=== PATIENT | male | born 1945 | race Caucasian/White ===

== ENCOUNTER 2017-02-02 18:57 | Emergency (ER) | payer OTHER, MEDICAID ==
[2017-02-02] MEDS ORDERED: SULFAMETHOX/TMP 800/160 MG 1 TAB PO ONE (19:26)
--- NOTE | 2017-02-02 19:29 | EDPHY ---
H & P Stated Complaint: L hand possible infection Time Seen by Provider: 02/02/17 19:17 HPI/ROS: CHIEF COMPLAINT: Hand infection HISTORY OF PRESENT ILLNESS: The patient is a 72-year-old man with a history of Alzheimer's disease who is sent here from Dr. Todd is office with concern for hand infection. The patient was been by a cat about a week ago but he is not sure. He developed some erythema and pain to the web space of his left thumb. There is a small pustular lesion the. No fever. No body aches. REVIEW OF SYSTEMS: Constitutional: denies: chills, fever, recent illness, recent injury EENTM: denies: blurred vision, double vision, nose congestion Respiratory: denies: cough, shortness of breath Cardiac: denies: chest pain, irregular heart rate, lightheadedness, palpitations Gastrointestinal/Abdominal: denies: abdominal pain, diarrhea, nausea, vomiting, blood streaked stools Genitourinary: denies: dysuria, frequency, hematuria, pain Musculoskeletal: denies: joint pain, muscle pain Skin: See HPI Neurological: denies: headache, numbness, paresthesia, tingling, dizziness, weakness Hematologic/Lymphatic: denies: blood clots, easy bleeding, easy bruising Immunologic/allergic: denies: HIV/AIDS, transplant EXAM: GENERAL: Well-appearing, well-nourished and in no acute distress. HEAD: Atraumatic, normocephalic. EYES: Pupils equal round and reactive to light, extraocular movements intact, sclera anicteric, conjunctiva are normal. ENT: TMs normal, nares patent, oropharynx clear without exudates. Moist mucous membranes. NECK: Normal range of motion, supple without lymphadenopathy or JVD. LUNGS: Breath sounds clear to auscultation bilaterally and equal. No wheezes rales or rhonchi. HEART: Regular rate and rhythm without murmurs, rubs or gallops. ABDOMEN: Soft, nontender, normoactive bowel sounds. No guarding, no rebound. No masses appreciated. BACK: No CVA tenderness, no spinal tenderness, step-offs or deformities EXTREMITIES: Normal range of motion, no pitting or edema. No clubbing or cyanosis. NEUROLOGICAL: Cranial nerves II through XII grossly intact. Normal speech, normal gait. 5/5 strength, normal movement in all extremities, normal sensation PSYCH: Normal mood, normal affect. SKIN: Small abscess easily drained between the patient's web space of his left thumb. Source: Patient Exam Limitations: No limitations - Personal History Current Tetanus/Diphtheria Vaccine: Unsure Tetanus Vaccine Date: Unsure - Medical/Surgical History Hx Asthma: No Hx Chronic Respiratory Disease: No Hx Diabetes: No Hx Cardiac Disease: No Hx Renal Disease: No Hx Cirrhosis: No Hx Alcoholism: No Hx HIV/AIDS: No Hx Splenectomy or Spleen Trauma: No Other PMH: PMHx: Alzheimers, BPH. PSHx: Hernia Repair 2013, colon surgery - Social History Smoking Status: Former smoker Alcohol Use: Sober Drug Use: None Constitutional: Initial Vital Signs Temperature (C) 36.8 C 02/02/17 19:05 Heart Rate 86 02/02/17 19:05 Respiratory Rate 16 02/02/17 19:05 Blood Pressure 125/81 H 02/02/17 19:05 O2 Sat (%) 95 02/02/17 19:05 O2 Delivery Mode Room Air Allergies/Adverse Reactions: No Known Allergies Allergy (Unverified 06/30/10 13:25) Home Medications: Medication Instructions Recorded Ascorbic Acid [Vitamin C 500 mg 1,000 mg PO DAILY06 12/22/14 (*)] Calcium Carbonate [Oyster Shell 500 mg PO DAILY06 12/22/14 Calcium 500 mg (*)] Cholecalciferol Vit D3 [Vitamin D3 1,000 units PO DAILY06 12/22/14 (*)] Donepezil HCl [Aricept] 10 mg PO DAILY18 12/22/14 Glucosamine/Chondroitin 1 each PO DAILY06 12/22/14 [Glucosamine/Chondroitin (*)] Herbals/Supplements -Info Only 1 ea PO DAILY 12/22/14 Multivitamins [Multivitamin (*)] 1 each PO DAILY 12/22/14 Union-3 Fatty Acids [Fish Oil 1000 1,000 mg PO DAILY06 12/22/14 mg (*)] Namenda 10 mg 10 mg PO DAILY 12/11/15 traMADol [Ultram 50 mg (*)] 50 mg PO Q4 PRN 12/31/15 Cephalexin [Keflex] 500 mg PO TID #21 cap 02/02/17 Sulfamethox/Tmp 800/160 mg 1 tab PO BID #14 tab 02/02/17 [Bactrim Ds] Medical Decision Making - Diagnostics Imaging: I viewed and interpreted images myself Procedures: Procedure: Abscess drainage. The patient's abscess was located on the left hand. I obtained verbal consent from the patient to drain the abscess who was informed about the possibility of bleeding and pain. Squeeze with pressure and 1 cc of purulent drainage was expressed. The procedure was performed by myself. ED Course/Re-evaluation: Patient has a small abscess that was easily drained. Culture sent to the lab. I will obtain lab work and start him on an IV dose of antibiotics. He looks well and I suspect he will succeeded home on oral antibiotics. I will also perform x-rays to rule out foreign body. 8:30 p.m. the patient is feeling well. His lab work is reassuring. He wishes to go home. I feel that he will probably succeeded as an outpatient. I will start him on Keflex and Bactrim. He has received Rocephin here in the emergency department. His mom is here and agrees with this plan. I told him to return in 24 hours for recheck. Differential Diagnosis: Partial list of the Differential diagnosis considered include but were not limited to; cellulitis, abscess, foreign body and although unlikely based on the history and physical exam, I also considered osteomyelitis, sepsis. I discussed these differential diagnoses and the plan with the patient as well as the usual and expected course. The patient understands that the diagnosis is provisional and that in medicine we are not always correct and that further workup is often warranted. Usual and customary warnings were given. All of the patient's questions were answered. The patient was instructed to return to the emergency department should the symptoms at all worsen or return, otherwise to followup with the physician as we discussed. - Data Points Laboratory Results: Laboratory Results 02/02/17 19:40 02/02/17 19:40 Microbiology Results: MICROBIOLOGY 02/02/17 19:40 Hand - Swab Gram Stain - Final 02/02/17 19:40 Hand - Swab Wound Culture - Preliminary Staphylococcus Aureus Pasteurella Multocida 02/02/17 20:15 Blood Blood Culture - Preliminary 02/02/17 19:40 Blood Blood Culture - Preliminary Medications Given: Discontinued Medications Cephalexin (Keflex 500 Mg Prepack#4) 1 btl TAKEHOME EDNOW ONE PRN Reason: Protocol Stop: 02/02/17 21:01 Last Admin: 02/02/17 21:34 Dose: 1 btl Ceftriaxone Sodium/Dextrose (Rocephin 1 Gm (Premix)) 50 mls @ 100 mls/hr IV EDNOW ONE PRN Reason: Protocol Stop: 02/02/17 19:52 Last Admin: 02/02/17 20:30 Dose: 50 mls Trimethoprim/Sulfamethoxazole (Bactrim Ds) 1 ea PO EDNOW ONE PRN Reason: Protocol Stop: 02/02/17 19:27 Last Admin: 02/02/17 20:56 Dose: 1 ea Departure - Departure Disposition: Home, Routine, Self-Care Clinical Impression: Abscess Condition: Fair Instructions: Cephalexin (By mouth), Animal Bite (ED), Abscess (ED) Referrals: Chris Bullock MD [Primary Care Provider] - As per Instructions Prescriptions: Cephalexin [Keflex] 500 mg PO TID #21 cap Sulfamethox/Tmp 800/160 mg [Bactrim Ds] 1 tab PO BID #14 tab
[2017-02-02 20:07] LABS: ANION GAP 14 mEq/L (8-16); CALCIUM 10.4 mg/dL (8.5-10.4); CARBON DIOXIDE 21 mEq/l (22-31); CHLORIDE 107 mEq/L (97-110); GLOMERULAR FILTRATION RATE > 60; GLUCOSE 100 mg/dL (70-100); SODIUM 142 mEq/L (134-144)
[2017-02-02 20:09] LABS: INR 1.05 (0.83-1.16); PROTIME(PATIENT) 13.6 SEC (12.0-15.0)
[2017-02-02 20:10] LABS: APTT 31.3 SEC (23.0-38.0)
[2017-02-02 20:14] LABS: % IMMATURE GRANULYOCYTES 0.9 % (0.0-1.1); ADD DIFF? NO; ADD MORPH? NO; ADD SCAN? NO; ATYPICAL LYMPHOCYTE FLAG 10 (0-99); FRAGMENT RBC FLAG 0 (0-99); HEMATOCRIT 46.9 % (40.0-51.0); HEMOGLOBIN 16.3 g/dL (13.7-17.5); LEFT SHIFT FLG 10 (0-99); LIPEMIA HEMOLYSIS FLAG 90 (0-99); MEAN CELL HEMOGLOBIN 28.6 pg (27.9-34.1); MEAN CELL HEMOGLOBIN CONCENTR. 34.8 g/dL (32.4-36.7); MEAN CELL VOLUME 82.3 fL (81.5-99.8); MEAN PLATELET VOLUME 9.3 fL (8.7-11.7); PLATELET CLUMPS FLAG 0 (0-99); PLATELET COUNT 246 10^3/uL (150-400); RED CELL DISTRIBUTION WIDTH 13.3 % (11.5-15.2)
[2017-02-02] MEDS ORDERED: CEPHALEXIN 500MG PREPACK#4 BTL TAKEHOME ONE (21:00)
[2017-02-02 21:34] VITALS: BP 146/92; PULSE 76; RESP 18; TEMP 98.8; O2SAT 96
== END 2017-02-02 21:33 | disposition home or self-care (01) ==
PROC: 0H9GXZZ Drainage of Left Hand Skin, External Approach (ICD-10-PCS; principal; 2017-02-02)
DX: L02.512 Cutaneous abscess of left hand (principal); Z87.891 Personal history of nicotine dependence
CPT/HCPCS: 10060; 73120; 96365; 99284; J0696

== ENCOUNTER 2018-07-21 01:39 | Inpatient (IN) | payer MEDICAID, OTHER ==
[2018-07-21] MEDS ORDERED: NS 1,000 ML IV ONE (01:52)
--- NOTE | 2018-07-21 01:52 | EDPHY ---
H & P Stated Complaint: dementia Time Seen by Provider: 07/21/18 01:52 HPI/ROS: HPI CHIEF COMPLAINT: Physical aggression, anger, delirium HISTORY OF PRESENT ILLNESS: 73-year-old male, history of Alzheimer's dementia, presents to the emergency room by EMS for acute agitation, physical aggression at home and hallucinations. Patient has dementia. He is due to go to [place] later this week to be admitted and however currently he staying at his mom 's house who is elderly in her 90s. EMS and 911 had to be called tonight as he has been hallucinating at night it usually starts late afternoon goes throughout the night. It has been happening for the past 3-4 nights. Appears to be sundowning. He gets angry and paranoid and thinks that there is a murder and the house. He started yelling at his grandson today getting physically aggressive and 911 was called. He arrives to the emergency room and has no complaints. However appears to be demented rather severe. He does seem easily excited and angry at times. Past Medical History: Alzheimer's dementia Past Surgical History: No recent surgery Social History: Denies drugs alcohol tobacco. Family History: Noncontributory ROS REVIEW OF SYSTEMS: 10 Systems were reviewed and negative with the exception of the elements mentioned in the history of present illness. Exam Constitutional nontoxic, disheveled, unkempt, triage nursing summary reviewed, vital signs reviewed, awake/alert. Eyes normal conjunctivae and sclera, EOMI, PERRLA. HENT normal inspection, atraumatic, moist mucus membranes, no epistaxis, neck supple/ no meningismus, no raccoon eyes. Respiratory clear to auscultation bilaterally, normal breath sounds, no respiratory distress, no wheezing. Cardiovascular rate normal, regular rhythm, no murmur, no edema, distal pulses normal. Gastrointestinal soft, non-tender, no rebound, no guarding, normal bowel sounds, no distension, no pulsatile mass. Genitourinary no CVA tenderness. Musculoskeletal no midline vertebral tenderness, full range of motion, no calf swelling, no tenderness of extremities, no meningismus, good pulses, neurovascularly intact. Skin pink, warm, & dry, no rash, skin atraumatic. Neurologic alert or x0. moves all 4 extremities equally, motor intact, sensory intact, CN II-XII intact, normal cerebellar, normal vision, normal speech. Psychiatric angry. Heme/Lymph/Immune no lymphadenopathy. Differential Diagnosis: Includes but is not limited to in a progressive dementia, delirium, sundowning, encephalopathy, electrolyte disturbance, dehydration, infection Medical Decision Making: Plan for this patient basic blood work, IV establishment, urinalysis. Plan for admission. Plan for admission for delirium. Re-evaluation: [id number]: Patient to the hospitalist service for delirium, acute agitation in the underlying dementia. Most likely sundowning. Zyprexa ordered. Dr. Stark Agrees to admit. Source: Patient, EMS Exam Limitations: Clinical condition - Personal History Current Tetanus/Diphtheria Vaccine: Yes Current Tetanus Diphtheria and Acellular Pertussis (TDAP): Yes Tetanus Vaccine Date: Unsure - Medical/Surgical History Hx Asthma: No Hx Chronic Respiratory Disease: No Hx Diabetes: No Hx Cardiac Disease: No Hx Renal Disease: No Hx Cirrhosis: No Hx Alcoholism: No Hx HIV/AIDS: No Hx Splenectomy or Spleen Trauma: No Other PMH: PMHx: Alzheimers, BPH. PSHx: Hernia Repair 2013, colon surgery - Social History Smoking Status: Former smoker Constitutional: Initial Vital Signs Temperature (C) 36.7 C 07/21/18 01:46 Heart Rate 80 07/21/18 01:46 Respiratory Rate 16 07/21/18 01:46 Blood Pressure 159/93 H 07/21/18 01:46 O2 Sat (%) 98 07/21/18 01:46 O2 Delivery Mode Room Air Allergies/Adverse Reactions: No Known Allergies Allergy (Verified 07/21/18 08:12) Home Medications: Medication Instructions Recorded Donepezil HCl [Aricept] 10 mg PO HS 07/21/18 Memantine HCl [Namenda 10 mg] 10 mg PO BID 07/21/18 Medical Decision Making - Data Points Laboratory Results: Laboratory Results 07/21/18 02:00 07/21/18 02:00 Medications Given: Enoxaparin Sodium (Lovenox) 40 mg SC DAILY CARRI Stop: 01/17/19 08:59 Last Admin: 07/21/18 12:30 Dose: 40 mg Discontinued Medications Sodium Chloride (Ns) 1,000 mls @ 0 mls/hr IV EDNOW ONE; Wide Open PRN Reason: Protocol Stop: 07/21/18 01:53 Last Admin: 07/21/18 02:01 Dose: 1,000 mls Lorazepam (Ativan Injection) 1 mg IVP EDNOW ONE Stop: 07/21/18 03:43 Last Admin: 07/21/18 03:43 Dose: 1 mg Lorazepam (Ativan Injection) 0.5 mg IVP EDNOW ONE Stop: 07/21/18 04:55 Last Admin: 07/21/18 05:00 Dose: 0.5 mg Lorazepam (Ativan Injection) 1 mg IVP ONCE ONE Stop: 07/21/18 16:14 Last Admin: 07/21/18 16:24 Dose: 1 mg Olanzapine (Zyprexa Zydis) 5 mg PO EDNOW ONE Stop: 07/21/18 02:37 Last Admin: 07/21/18 02:39 Dose: 5 mg Olanzapine (Olanzapine) 5 mg PO ONCE ONE Stop: 07/21/18 03:23 Last Admin: 07/21/18 04:36 Dose: Not Given Olanzapine (Zyprexa Injection) 5 mg IM ONCE ONE Stop: 07/21/18 16:19 Last Admin: 07/21/18 16:37 Dose: 5 mg Departure - Departure Disposition: [facility] Acute Clinical Impression: Delirium Dementia Qualifiers: Dementia type: unspecified type Dementia behavioral disturbance: with behavioral disturbance Qualified Code(s): F03.91 - Unspecified dementia with behavioral disturbance Condition: Good
[2018-07-21 02:30] LABS: PLATELET COUNT 212 10^3/uL (150-400)
[2018-07-21] MEDS ORDERED: OLANZapine DISINTEGR 5 MG TAB PO ONE (02:36)
[2018-07-21] MEDS ORDERED: ACETAMINOPHEN 325 MG TAB PO PRN (03:22)
[2018-07-21] MEDS ORDERED: ONDANSETRON DISINTEGRATING 4 MG TAB PO PRN (03:22)
[2018-07-21] MEDS ORDERED: OLANZapine 5 MG TAB PO ONE (03:22)
[2018-07-21] MEDS ORDERED: ONDANSETRON 4 MG/2 ML VIAL IVP PRN (03:22)
[2018-07-21] MEDS ORDERED: LORazepam 2 MG/ML INJ ONE (03:38)
[2018-07-21] MEDS ORDERED: LORazepam 2 MG/ML INJ IVP ONE ×3 (03:42→16:13)
--- NOTE | 2018-07-21 03:46 | PDGENHP ---
History and Physical - Chief Complaint Agitation - History of Present Illness 73 yo M w/ hx of dementia brought in by EMS due to agitation. Per report, the patient has been becoming confused and hallucinating in the evenings for the last several days. Today he became more aggressive, which worried his rigger third who is his 94 yo mother. The patient is supposed to be admitted to [facility] later this week for dementia care. Work-up in the ED has been unrevealing of acute pathology, although a UA is pending. He is being admitted for management of agitation and case management consultation. The patient himself denies any complaints. Case discussed with ED physician Dr. Salazar; records reviewed and summarized above. History Information - Allergies/Home Medication List Allergies/Adverse Reactions: No Known Allergies Allergy (Unverified 07/21/18 01:44) Home Medications: Donepezil HCl 07/21/18 [Last Taken Unknown] Memantine HCl 07/21/18 [Last Taken Unknown] I have personally reviewed and updated: family history, medical history - Past Medical History dementia Additional medical history: BPH - Surgical History Reports: colectomy Additional surgical history: TURP - Family History Additional family history: Asked, denies - Social History Smoking Status: Former smoker Review of Systems Review of Systems: ROS: 10pt was reviewed & negative except for what was stated in HPI & below Physical Exam Physical Exam: Temp Pulse Resp BP Pulse Ox 36.7 C 81 16 146/94 H 95 07/21/18 01:46 07/21/18 02:40 07/21/18 02:40 07/21/18 02:40 07/21/18 02:40 Constitutional: no apparent distress, not in pain Eyes: PERRL, anicteric sclera Ears, Nose, Mouth, Throat: moist mucous membranes, no oral mucosal ulcers Cardiovascular: regular rate and rhythym, no murmur, rub, or gallop Respiratory: no respiratory distress, clear to auscultation Gastrointestinal: normoactive bowel sounds Skin: warm, normal color Musculoskeletal: full muscle strength, no muscle tenderness Neurologic: other (A&Ox1), No facial droop Psychiatric: agitated, poor insight, poor memory Lab Data & Imaging Review 07/21/18 02:00 07/21/18 02:00 WBC 9.21 10^3/uL (3.80-9.50) 07/21/18 02:00 RBC 5.70 10^6/uL (4.40-6.38) 07/21/18 02:00 Hgb 16.3 g/dL (13.7-17.5) 07/21/18 02:00 Hct 47.2 % (40.0-51.0) 07/21/18 02:00 MCV 82.8 fL (81.5-99.8) 07/21/18 02:00 MCH 28.6 pg (27.9-34.1) 07/21/18 02:00 MCHC 34.5 g/dL (32.4-36.7) 07/21/18 02:00 RDW 13.5 % (11.5-15.2) 07/21/18 02:00 Plt Count 212 10^3/uL (150-400) 07/21/18 02:00 MPV 9.3 fL (8.7-11.7) 07/21/18 02:00 Neut % (Auto) 61.6 % (39.3-74.2) 07/21/18 02:00 Lymph % (Auto) 26.1 % (15.0-45.0) 07/21/18 02:00 Bryan % (Auto) 8.7 % (4.5-13.0) 07/21/18 02:00 Eos % (Auto) 2.3 % (0.6-7.6) 07/21/18 02:00 Baso % (Auto) 0.8 % (0.3-1.7) 07/21/18 02:00 Nucleat RBC Rel Count 0.0 % (0.0-0.2) 07/21/18 02:00 Absolute Neuts (auto) 5.68 10^3/uL (1.70-6.50) 07/21/18 02:00 Absolute Lymphs (auto) 2.40 10^3/uL (1.00-3.00) 07/21/18 02:00 Absolute Monos (auto) 0.80 10^3/uL (0.30-0.80) 07/21/18 02:00 Absolute Eos (auto) 0.21 10^3/uL (0.03-0.40) 07/21/18 02:00 Absolute Basos (auto) 0.07 10^3/uL (0.02-0.10) 07/21/18 02:00 Absolute Nucleated RBC 0.00 10^3/uL (0-0.01) 07/21/18 02:00 Immature Gran % 0.5 % (0.0-1.1) 07/21/18 02:00 Immature Gran # 0.05 10^3/uL (0.00-0.10) 07/21/18 02:00 Sodium 141 mEq/L (135-145) 07/21/18 02:00 Potassium 4.0 mEq/L (3.5-5.2) 07/21/18 02:00 Chloride 110 mEq/L (97-110) 07/21/18 02:00 Carbon Dioxide 22 mEq/l (22-31) 07/21/18 02:00 Anion Gap 9 mEq/L (6-14) 07/21/18 02:00 BUN 19 mg/dL (7-23) 07/21/18 02:00 Creatinine 0.9 mg/dL (0.7-1.3) 07/21/18 02:00 Estimated GFR > 60 07/21/18 02:00 Glucose 91 mg/dL (70-100) 07/21/18 02:00 Calcium 9.8 mg/dL (8.5-10.4) 07/21/18 02:00 Urine Color YELLOW 07/21/18 03:15 Urine Appearance HAZY 07/21/18 03:15 Urine pH 5.0 (5.0-7.5) 07/21/18 03:15 Ur Specific [place] 1.020 (1.002-1.030) 07/21/18 03:15 Urine Protein NEGATIVE (NEGATIVE) 07/21/18 03:15 Urine Ketones 1+ (NEGATIVE) H 07/21/18 03:15 Urine Blood NEGATIVE (NEGATIVE) 07/21/18 03:15 Urine Nitrate NEGATIVE (NEGATIVE) 07/21/18 03:15 Urine Bilirubin NEGATIVE (NEGATIVE) 07/21/18 03:15 Urine Urobilinogen NEGATIVE EU (0.2-1.0) 07/21/18 03:15 Ur Leukocyte Esterase NEGATIVE (NEGATIVE) 07/21/18 03:15 Urine Glucose NEGATIVE (NEGATIVE) 07/21/18 03:15 Assessment & Plan Assessment: 73 yo M w/ dementia presents with agitation. Plan: 1. Agitation - Likely as a result of sundowning noting known dementia. His VS and laboratory work-up do not reveal acute abnormality, although UA is still pending. The patient himself denies any complaints. - S/p Zyprexa x1 - Follow up results of UA - CM consult 2. Dementia - Alzheimer's type; he is supposed to be admitted to [facility] later this week for increased level of care. - Continue medications pending reconciliation 3. BPH - S/p TURP Diet - Regular Code - Full Ppx - LMWH Dispo - Admit under observation status
--- NOTE | 2018-07-21 12:26 | PDMN ---
Medical Necessity Medical necessity: Pt meets IP criteria as of 07/21/2018 per and [facility] ( general admission criteria); est los > 2 mn for ongoing tx and management of increased agitation in a dementia pt causing inability to care for self; requiring further work up, PRN zyprexa, and case management consultation.
[2018-07-21] MEDS: ENOXAPARIN 40 MG/0.4 ML SYR SC SCH (12:30)
--- NOTE | 2018-07-21 14:28 | HOSPPROG ---
Hospitalist Progress Note Assessment/Plan: 73 year old male with pmh of dementia, admitted with worsening hallucinations and psychosis. Agitation - sundowning high in the differential. UA clean and labs are all essentially unremarkable. He was given zyprexa in the night and is now lethargic. Uncertain what his baseline is. -Palliative care consult for symptomatic management -PRN seroqoquel if he will take oral -zyprexa if needed -frequent reorienting, good sleep hygiene, Dementia - Alzheimer's type; he is supposed to be admitted to [facility] later this week for increased level of care. - Continue medications pending reconciliation BPH - S/p TURP Diet - Regular Code - Full Ppx - LMWH Dispo - Admit under observation status Subjective: patient somnolent but withouth complaints. appeared relaxed. Objective: Vital Signs Temp Pulse Resp BP Pulse Ox 36.4 C 69 14 164/62 H 94 07/21/18 08:00 07/21/18 08:00 07/21/18 08:00 07/21/18 08:00 07/21/18 08:00 - Physical Exam Constitutional: no apparent distress, appears nourished, not in pain Eyes: PERRL, anicteric sclera, EOMI Ears, Nose, Mouth, Throat: moist mucous membranes, hearing normal, ears appear normal, no oral mucosal ulcers Cardiovascular: regular rate and rhythym, no murmur, rub, or gallop Respiratory: no respiratory distress, no rales or rhonchi, clear to auscultation Gastrointestinal: normoactive bowel sounds, soft, non-tender abdomen, no palpable masses Genitourinary: no bladder fullness, no bladder tenderness, no renal bruits Skin: no rashes or abrasions, no fluctuance, no induration Musculoskeletal: full muscle strength, no muscle tenderness, normal joint ROM Neurologic: sensation intact bilaterally, other (No focal deficits obvious, patient not participatory in exam. ) Psychiatric: other (patient lethargic and responds only with name, but otherwise is not oriented. ) Lymph, Heme, Immunologic: no cervical LAD, no supraclavicular LAD ICD10 Worksheet Patient Problems: Problems Problem Status Onset Delirium Acute Dementia Acute Benign prostatic hyperplasia (BPH) with urinary urgency Acute
--- NOTE | 2018-07-21 15:19 | ASMTCMCOM ---
CM Note CM Note Notes: 07/21/2018 Case Management Note Pt admitted for agitation r/t dementia. Palliative order noted. Faxed referral to [facility]. [facility] rounded on case and made recommendations to MD. Borjas from [facility] visited patient. Family has paid for alf care at [facility]. Tavia Lopez able to accept pt once symptoms are stable. PASRR completed by [facility]. 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 Case Management to follow. Date Signed: 07/21/2018 03:18 PM Electronically Signed By:Fabiola Mccauley RN
[2018-07-21] MEDS ORDERED: OLANZapine 10 MG/2 ML VIAL IM ONE (16:18)
[2018-07-21] MEDS: OLANZapine 10 MG/2 ML VIAL IM PRN (22:45)
[2018-07-22] MEDS ORDERED: LORazepam 2 MG/ML INJ IVP ONE (00:10)
--- NOTE | 2018-07-22 09:05 | PDPCPN ---
Palliative Care Progress Note Assessment/Plan: Assessment: [facility] [address] [place] [id number] (O) [phone](F) PALLIATIVE CARE NOTE NAME: Evans Saenz : 49 VISIT TYPE: Initial LOCATION: Critical access hospital LEVEL OF CARE: Hospice watch DIAGNOSES: 1. 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 He has been cared for by his mother. He had been scheduled to move into a memory care unit. He began having sundowning with fairly significant behavioral changes and some aggressive behavior. He was admitted to the hospital for control of these behaviors. PMH: As above ALLERGIES: NKDA FAMILY HISTORY: SOCIAL HISTORY: Has been living with his mother as his primary caregiver PATIENT GOALS OF CARE: Unable to elicit ACTIVE SYMPTOMS/ASSESSMENTS/RECOMMENDATIONS: 1. Alzheimer's dementia with behavioral disturbances F02.81: Increasing behavioral changes with some aggressive behavior. Would recommend Seroquel 25 mg daily at bedtime. Would also recommend a when necessary dose of 12.5 mg. MODIFIED ED[place]ONTON SYMPTOM ASSESSMENT SCALE: 0-none; 1-3 mild; 4-6 moderate; 7-10 severe Unable to Respond: Yes Delirium: 0-none Depression: 0-none Anxiety: 5-Mod Tiredness (fatigue): 5-Mod Drowsiness (sleepiness): 0-none Pain: 0-none Nausea: 0-none Anorexia: 0-none Shortness of Breath: 0-none Secretions: 0-none Constipation: 0-none Symptom and side effect management: (acceptable to patient and family) RISK FACTORS FOR RE-HOSPITALIZATION: o NEEDS ASSISTANCE WITH ADLS/FALL RISK o MEDICATION MANAGEMENT o CAREGIVER ANXIETY o DIAGNOSIS OF COGNITIVE IMPAIRMENT o DISEASE EDUCATION DEFICIT OBJECTIVE FINDINGS Palliative Performance Score: 70 FAST: 6D NYHA: n/a Vital Signs: Wt: MAC: Neuro: Awake. Unable to determine orientation. HEENT: Normocephalic; atraumatic RESP: Regular, deep, symmetrical. No cough or wheezing CV: no LE edema GI: soft, round : no dysuria or hematuria MSK: Well nourished. Ambulatory SKIN: intact LAB Data: N/A Disposition: Will be discharged from the hospital to a memory care unit. ADVANCE CARE PLANNING DISCUSSION PLAN: 1. TEST EXAMINER visit schedule upon discharge from the hospital. 2. Palliative Supportive Service referrals matchbook maker upon discharge from the hospital Thank you for the opportunity to participate in the care of this patient. TIME SPENT: [id number] 25 min >50% of the time spent counseling, educating and coordinating the above topics. Abran Reyes ANP Plan: 07/22/18 09:05 Objective: Vital Signs Temp Pulse Resp BP Pulse Ox 36.4 C 95 20 166/105 H 94 07/21/18 08:00 07/22/18 03:14 07/21/18 22:36 07/22/18 03:14 07/21/18 08:00 07/21/18 07/22/18 07/23/18 05:59 05:59 05:59 Intake Total 120 0 Balance 120 0 ICD10 Worksheet Patient Problems: Problems Problem Status Onset Delirium Acute Dementia Acute Benign prostatic hyperplasia (BPH) with urinary urgency Acute
[2018-07-22] MEDS: ENOXAPARIN 40 MG/0.4 ML SYR SC SCH (09:25)
[2018-07-22] MEDS ORDERED: LORazepam 2 MG/ML INJ IVP PRN (10:12)
[2018-07-22] MEDS: OLANZapine 10 MG/2 ML VIAL IM PRN (10:19)
[2018-07-22] MEDS ORDERED: PIPERACILLIN/TAZO 4.5 GM/DEX 100 ML IV ONE (14:32)
[2018-07-22] MEDS: NS 1,000 ML IV SCH (15:21)
[2018-07-22 15:22] LABS: PLATELET COUNT 231 10^3/uL (150-400)
[2018-07-22] MEDS: ACETAMINOPHEN 650 MG SUPP PR PRN (15:22)
--- NOTE | 2018-07-22 16:17 | ASMTCMCOM ---
CM Note CM Note Notes: 07/22/2018 [facility] Management Note Contact with Alejo STAPLETON who provided [facility] paperwork and Living Will. Both are in front of chart. Discussion with palliative care team members. Palliative goals of care conference planned for 9 am Thursday morning. Psychiatry and neurology consults ordered. Per Alejo, Dr. Azul is pt neurologist as outpatient. Pt was accepted at [facility] prior to admisson at [facility] for [facility] placement. Family has provided a down payment to [facility]. PASSR is completed per Suad at [facility]. Faxed referral to [facility]. Case Management d/c poc: [facility] once medically stable. Case Management to follow. Date Signed: 07/22/2018 04:17 PM Electronically Signed By:Fabiola Mccauley RN
--- NOTE | 2018-07-22 16:25 | HOSPPROG ---
Hospitalist Progress Note Assessment/Plan: 73 year old male with pmh of dementia, admitted with worsening hallucinations and psychosis. sepsis- patient spiked a fever to 102 today and is tachycardic. It is likely that he aspirated at one point as he sounds full of secretions. CXR obtained and my read is a new RLL infiltrate consistent with possible aspiration. patient has not allowed any lab draws since the ED but no evidence of infection on arrival -blood cultures -IVF -zosyn -cbc/cmp Agitation - sundowning high in the differential. UA clean and labs are all essentially unremarkable. He was given zyprexa in the night and is now lethargic. Uncertain what his baseline is. -Palliative care consult for symptomatic management -PRN seroqoquel if he will take oral -PRN ativan, try to minimize zyprexa. -psych consulted -Neuro consult placed, will try to call neuro again to see patient -frequent reorienting, good sleep hygiene, Dementia - Alzheimer's type; he is supposed to be admitted to [place] later this week for increased level of care. - Continue medications pending reconciliation -discussed case with patients nephew PIETER who confirmed patients worsening dementia and psychosis over the last 6 weeks. BPH - S/p TURP Diet - Regular Code - Full Ppx - LMWH Dispo - change to inpatient status for sepsis, agitation, acute psychosis Subjective: lethargic, agitated when awake. Objective: Vital Signs Temp Pulse Resp BP Pulse Ox 39.4 C H 110 H 24 H 119/89 H 87 L 07/22/18 15:56 07/22/18 15:56 07/22/18 15:56 07/22/18 15:56 07/22/18 14:20 Laboratory Results 07/22/18 14:54 07/22/18 14:54 07/21/18 07/22/18 07/23/18 05:59 05:59 05:59 Intake Total 120 0 Balance 120 0 - Physical Exam Constitutional: unkempt Eyes: anicteric sclera, EOMI Ears, Nose, Mouth, Throat: moist mucous membranes, hearing normal, ears appear normal, no oral mucosal ulcers Cardiovascular: tachycardia Respiratory: inspiratory crackles Gastrointestinal: soft, non-tender abdomen Genitourinary: no bladder tenderness Skin: no rashes or abrasions Musculoskeletal: full muscle strength Neurologic: CN II-XII Intact Psychiatric: anxious, agitated ICD10 Worksheet Patient Problems: Problems Problem Status Onset Delirium Acute Dementia Acute Benign prostatic hyperplasia (BPH) with urinary urgency Acute
[2018-07-22] MEDS: PIPERACILLIN/TAZO 4.5 GM/DEX 100 ML IV SCH (22:07)
[2018-07-23] MEDS: PIPERACILLIN/TAZO 4.5 GM/DEX 100 ML IV SCH ×4 (05:10→22:41)
[2018-07-23] MEDS: NS 1,000 ML IV SCH ×2 (07:39→18:20)
[2018-07-23] MEDS: ENOXAPARIN 40 MG/0.4 ML SYR SC SCH (09:50)
--- NOTE | 2018-07-23 10:16 | NEUROPROG ---
Assessment: HOSPITAL NEUROLOGY CONSULT REQUESTING: Jamar REASON: AMS HPI: 73 year old man with Alzheimer dementia who presented with worsening confusion and hallucinations in the evenings. Also being more agitated with his primary caregiver who is his 94 year old mother. He has delusions in evening there is a murderer in his house and he has become agitated and aggressive towards caregivers. He is a patient of Dr. Azul who has known Alzheimer dementia. Last visit in January 2018 indicated the patient becoming more agitated. At that time transition to a memory care unit was recommended, and this has been in the works with impending transition at this time. Patient has become more encephalopathic in hospital and now has leukocytosis and evidence of pneumonia on CXR along with elevated PCT, fever and tachycardia. Nephew, who is POA, has requested palliative care consultation. ROS: As per the HPI, otherwise a complete 12 point ROS was performed and is negative ALLERGIES AND MEDS: As recorded in the EMR - reviewed and reconciled PFSH: As per the intake H&P by Dr. Stark from 07/21 EXAM: VS reviewed in EMR GEN: WDWN laying in bed on NRB mask with eyes closes He does not open eyes to verbal/tactile stimulation. He is moaning only - no meaningful verbal output. He does not follow commands. Eyes are matted shut. When opened, his primary gaze is centered and pupils 4mm round/reactive. He blinks to threat. No tracking examiner with eyes. Grimaces to nox stim of the face. Face symmetric. He withdraws briskly to nox stim in the extremities. He is reaching into the air with arms and has good passive resistive force. Plantars down. No clonus. DTRs 2/4. DATA REVIEW: Labs reviewed in EMR IMPRESSION AND RECOMMENDATIONS: Patient with known Alzheimer dementia with progressive behavioral disturbance. Now with evidence of SIRS/sepsis from pneumonia. Likely having progression of his behavioral disturbance with AD and further acute decompensation in the setting of an acute infection. Recommend ongoing toxic/metabolic/infectious work up and treatment per primary team. Delirium precautions - day/night orientation, lights on/window shade up from [id number], frequent orientation, family at bedside, sensory optimization, regular meal times if able to take PO, OOB to chair when safe, nonpharmacologic sleep enhancement with cool/quiet/dark room. Use behavioral interventions as first line, including reassurance, reorientation and distraction. Can continue low dose quetiapine PO/olanzapine IM as needed for severe agitation. Avoid benzo due to risk of paradoxical reaction. Further behavioral medication management per psychiatry. Can continue home memantine/donepezil when taking PO. Palliative care on board per POA request. No further recommendations. Sign off. Objective: Vital Signs Temp Pulse Resp BP Pulse Ox 36.6 C 97 18 131/78 H 93 07/23/18 08:00 07/23/18 08:00 07/23/18 08:00 07/23/18 08:00 07/23/18 08:00 Laboratory Results 07/22/18 14:54 07/22/18 14:54 07/22/18 07/23/18 07/24/18 05:59 05:59 05:59 Intake Total 120 2000 100 Output Total 60 Balance 120 1940 100 Allergies/Adverse Reactions: No Known Allergies Allergy (Verified 07/21/18 08:12)
[2018-07-23] MEDS: ACETAMINOPHEN 650 MG SUPP PR PRN ×2 (10:35→16:06)
--- NOTE | 2018-07-23 13:43 | PDCONSULT ---
Office Support Associate Note: PSYCHIATRY MD CONSULTATION DATE OF CONSULTATION: 07/22/2018 DATE OF EVALUATION: 07/23/2018 REFERRAL QUESTION: Consultation requested by hospitalist Dr. Roldan for medication management recommendations in this patient with dementia and behavioral disturbances with hallucinations. Reviewed EMR and obtained collateral information from family (nephew Alejo, who is POA, and [id number]) on 07/22. Discussed case and initial recommendations briefly with hospitalist. Pt too somnolent for interview on , and was noted with fever and aspiration pneumonia requiring supplemental O2 and starting antibiotics. Briefly, pt is a 73yo CM with known hx of dementia, Alzheimers type, and no past psychiatric history, who has been declining over past 6 months with increased paranoia, AH, not recognizing his reflection in the mirror, and gradual decline in ADLs. Less consistently recognizes familiar individuals. Over past couple of months, family reports he has been increasingly intimidating , with sleep/wake cycle disturbance, increased paranoia, +visual hallucinations , more confrontational including towards his reflections, and paranoid about gang of murderers surrounding his house and concerns about being killed. Over prior few days before admission, nephew reports pt has allen more confrontational , with unpredictable and increasing aggressive behavior, not redirectable, with further decreased sleep, screaming at his reflections, continued paranoia about murderers around home, and with misperceptions that his shoes, his reflection, or a flash of light is the "killer." Mother, who is 94 and has been his caregiver, no longer feels able to manage him safely at home, even with additional caregiver help which she has had over past few months. He has also notably been increasingly confused and hallucinating in the evenings, although family reports not exclusively and he has been noted to have hallucinations ( apparently both auditory and visual) other times of day. PAST PSYCHIATRIC/SOCIAL/LEGAL HX: No past hx of inpatient or outpatient treatment, no hx of psychiatric medications. Nephew reports pt has always had a "hot temper" his whole life. No reported hx of depression, tammy, psychosis or suicidality. Once had an assault charge in 1969's. 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 Has lived with his parents his entire life except 4 years total. Engaged briefly once, and moved home to save money for this, which ultimately ended. Pt is oldest of 4, with a younger brother, sister and youngest brother of [place] in . Father of [place] in . SUBSTANCE USE HX: Experimented with hallucinogens and other drugs in . Daily THC in . Family gave him a 1/4 CBD gummy in Nov and 1/2 gummy last weekend which seemed to help his behavioral disturbances, nephew stated. Otherwise no reported use, and no EtOH or other drugs. FAMILY PSYCH HX: 2 remote relatives +suicide, Father's side of family +EtOH. PAST MEDICAL HX: Dxd dementia, Alz type, about 6-7 yrs ago altho family reports 3-4yr hx of memory problems/cognitive decline prior to diagnosis. Dr. Azul is outpatient neurologist. Has been on Namenda. MSE: opening eyes on command, less agitated on interaction, allowed industrial staff nurse to clean him and change pad with only occasional brief yell. seemed to respond appropriately to yes/no questions, but very difficult to otherwise understand as dysarticulate and wearing O2 and dry mouth. at times noted reaching out to something unseen or brushing something off his arm. did not appear responding to AH. Impression: 73 yo with known hx of dementia x 6+yrs, with notable progression over past several months, notably with increased psychosis sxs and sleep/behavioral disturbances admitted due to incr aggression and family feeling pt no longer able to be safely managed at home. Agitation and aggression medicated with doses of IM Zyprexa in ED and within initial 24hrs, but then became somnolent, also developed aspiration pneumonia, now with fever, on O2 and on ABXs. Dx: neurocognitive disorder, severe, unspecified (likely Alz dz by hx), with behavioral disturbances Rec: -continue treatment for medical condition/aspiration pneumonia, and sundowning management recommendations per neurology -would avoid benzodiazepines and anticholinergics in this pt with dementia due to incr risk of worsening cognition and delirium. -would be very conservative and with judicious use of any neuroleptic medication in this pt with advanced dementia, and neuroleptics should only be used if pt behaviors become threatening or unsafe. Would recommend low dose of atypical neuroleptics such as Quetiapine 12.5-25mg po bid-tid prn, or Zyprexa zydis (dissolvable) 1-2.5mg bid-tid prn. -Would monitor VS more frequently if needing to use neuroleptics, as pt would be at increased risk for adverse effects incl extrapyramidal side effects ( parkinsonism, akathisia) or even neuroleptic malignant syndrome, also cardiovascular complications (GA, CVA). Consider head CT if indicated. -Note has had a few doses of Zyprexa 5mg IM initially during hospitalization, last dose 10am 07/22. Altho fever most likely related to aspiration pneumonia, could check WBC and CPK also monitor for fluctuations of VS to monitor for NMS. -Given hx of visual hallucinations, would also consider Lewy Body Dementia, and in this case he would be exquisitely sensitive to antipsychotic medications and these would need to be avoided due to increased risks. Not noted with rigidity on bedside examination of upper extremities this AM. Unable to assess whether with any other parkinsonian sxs. Neurology consulted -may respond better to brief questions, and brief statements given likely difficulty with complex comprehension.
--- NOTE | 2018-07-23 14:20 | HOSPPROG ---
Hospitalist Progress Note Assessment/Plan: 73 year old male with pmh of dementia, admitted with worsening hallucinations and psychosis. sepsis- patient spiked a fever to 102 on 07/22 and was tachycardic. It is likely that he aspirated at one point as he sounds full of secretions. CXR obtained which shows bibasilar airspace opacities may be representing aspiration. WBC uptrending overnight from 9.2 --> 14.4 -blood cultures collected, pending -Continue IVF -Continue zosyn pending culture data -Continue to monitor CBC Agitation - owning high in the differential. UA clean and labs are all essentially unremarkable. He was given zyprexa on 07/22 and was lethargic per report. Uncertain what his baseline is. -Palliative care consult for symptomatic management -PRN seroqoquel if he will take oral -PRN ativan, try to minimize zyprexa. -psych consulted, appreciate recs -Neuro consult placed, seen this morning, appreciate recommendations -frequent reorienting, good sleep hygiene Dementia - Alzheimer's type; he is supposed to be admitted to [place] later this week for increased level of care. - Continue medications pending ability to take PO - discussed case with patients nephew MDPOA who confirmed patients worsening dementia and psychosis over the last 6 weeks. BPH - S/p TURP Diet - Regular Code - Changed to DNR this afternoon after discussion with MD DÍAZ Ppx - LMWH Dispo - Continue inpatient status for sepsis, agitation, acute psychosis Subjective: Patient confused and disoriented this AM Objective: Vital Signs Temp Pulse Resp BP Pulse Ox 37.7 C 97 18 131/78 H 93 07/23/18 12:40 07/23/18 08:00 07/23/18 08:00 07/23/18 08:00 07/23/18 08:00 Laboratory Results 07/22/18 14:54 07/22/18 14:54 07/22/18 07/23/18 07/24/18 05:59 05:59 05:59 Intake Total 120 2000 100 Output Total 60 Balance 120 1940 100 - Physical Exam Constitutional: chronically ill appearing, uncomfortable Eyes: PERRL Ears, Nose, Mouth, Throat: dry mucous membranes Cardiovascular: regular rate and rhythym Respiratory: no respiratory distress, reduced air movement, bronchial breath sounds Skin: warm Neurologic: No AAOx3 Psychiatric: encephalopathic, No interacting appropriately ICD10 Worksheet Patient Problems: Problems Problem Status Onset Delirium Acute Dementia Acute Benign prostatic hyperplasia (BPH) with urinary urgency Acute
[2018-07-24] MEDS ORDERED: ALBUTEROL 3 ML DEYVIAL IH PRN (00:10)
[2018-07-24] MEDS: PIPERACILLIN/TAZO 4.5 GM/DEX 100 ML IV SCH ×4 (04:25→22:54)
[2018-07-24] MEDS: NS 1,000 ML IV SCH ×2 (05:25→16:22)
[2018-07-24 06:42] LABS: CREATINE KINASE 244 IU/L (0-224)
[2018-07-24 07:18] LABS: PLATELET COUNT 167 10^3/uL (150-400)
--- NOTE | 2018-07-24 10:00 | HOSPPROG ---
Hospitalist Progress Note Assessment/Plan: 73 year old male with pmh of dementia, admitted with worsening hallucinations and psychosis. sepsis- patient spiked a fever to 102 on 07/22 and was tachycardic. It is likely that he aspirated at one point as he sounds full of secretions. CXR obtained which shows bibasilar airspace opacities may be representing aspiration. WBC improving today -blood cultures collected, pending -Continue IVF -Continue zosyn pending culture data -Continue to monitor CBC Agitation - sundowning high in the differential. UA clean and labs are all essentially unremarkable. He was given zyprexa on 07/22 and was lethargic per report. Uncertain what his baseline is. -Palliative care consult for symptomatic management -PRN seroqoquel if he will take oral - otherwise small dose of IV haldol if not taking po -dc ativan, -psych consulted, appreciate recs -frequent reorienting, good sleep hygiene Dementia - Alzheimer's type; he is supposed to be admitted to [place] later this week for increased level of care. - Continue medications pending ability to take PO - discussed case with patients nephew PIETER who confirmed patients worsening dementia and psychosis over the last 6 weeks. - palliative care consult BPH - S/p TURP Diet - Regular Code - dnr Ppx - LMWH Dispo - Continue inpatient status for sepsis, agitation, acute psychosis Subjective: agitated, confused this morning Objective: Vital Signs Temp Pulse Resp BP Pulse Ox 37.2 C 83 20 112/64 90 L 07/24/18 08:00 07/24/18 08:00 07/24/18 08:00 07/24/18 08:00 07/24/18 08:00 Laboratory Results 07/24/18 06:06 07/24/18 06:06 07/23/18 07/24/18 07/25/18 05:59 05:59 05:59 Intake Total 1999 2600 Output Total 60 Balance 1939 2600 - Physical Exam Constitutional: not in pain, chronically ill appearing, unkempt Cardiovascular: regular rate and rhythym, no murmur, rub, or gallop Respiratory: other (mild tachypnea, rhonchi) Skin: warm Neurologic: No AAOx3 Psychiatric: encephalopathic ICD10 Worksheet Patient Problems: Problems Problem Status Onset Delirium Acute Dementia Acute Benign prostatic hyperplasia (BPH) with urinary urgency Acute
[2018-07-24] MEDS: ENOXAPARIN 40 MG/0.4 ML SYR SC SCH (10:13)
--- NOTE | 2018-07-24 11:35 | ASMTCMCOM ---
CM Note CM Note Notes: Pt here with severe dementia and increasing agitation. Pt has been living with his 94 yr old mother who has been his caregiver but can no longer manage. Pt's nephew is mdpoa, plan is for pt to be admitted to [facility] when medically stable. DC Plan: [place] Date Signed: 07/24/2018 11:35 AM Electronically Signed By:Lissette Manuel RN
[2018-07-24] MEDS: HALOPERIDOL LACT 5 MG/ML INJ IVP PRN (11:43)
[2018-07-24] MEDS: ACETAMINOPHEN 650 MG SUPP PR PRN (15:38)
[2018-07-25] MEDS: NS 1,000 ML IV SCH (02:24)
[2018-07-25] MEDS: PIPERACILLIN/TAZO 4.5 GM/DEX 100 ML IV SCH ×3 (04:21→15:39)
[2018-07-25] MEDS: HALOPERIDOL LACT 5 MG/ML INJ IVP PRN ×2 (06:35→16:09)
[2018-07-25] MEDS ORDERED: OLANZapine 2.5 MG TAB PO ONE (09:41)
[2018-07-25] MEDS: ENOXAPARIN 40 MG/0.4 ML SYR SC SCH (09:41)
--- NOTE | 2018-07-25 09:45 | HOSPPROG ---
Hospitalist Progress Note Assessment/Plan: ADDENDUM: STILL WITH PERSISTENT FEVERS. WILL CHANGE ZOSYN TO INVANZ IN CASE IT IS A DRUG FEVER. 73 year old male with pmh of dementia, admitted with worsening hallucinations and psychosis. sepsis- patient spiked a fever to 102 on 07/22 and was tachycardic. It is likely that he aspirated at one point as he sounds full of secretions. CXR obtained which shows bibasilar airspace opacities may be representing aspiration. * fever curve is better but still spiking * will recheck cxr * ua and blood cultures are negative * cont zosyn Agitation - sundowning high in the differential. UA clean and labs are all essentially unremarkable. He was given zyprexa on 07/22 and was lethargic per report. Uncertain what his baseline is. * was very sedated on 5 mg zyprexa * will try 1.25 mg this morning * prn haldol * no ativan Dementia - Alzheimer's type; he is supposed to be admitted to [place] later this week for increased level of care. BPH - S/p TURP Diet - Regular Code - dnr Ppx - stop lovenox d/t severe agitiation Dispo - Continue inpatient status for sepsis, agitation, acute psychosis Subjective: not much change. low grade fever yest Objective: Vital Signs Temp Pulse Resp BP Pulse Ox 38.1 C 61 18 144/72 H 93 07/25/18 08:00 07/25/18 08:00 07/25/18 08:00 07/25/18 08:00 07/25/18 08:00 Laboratory Results 07/24/18 06:06 07/24/18 06:06 07/24/18 07/25/18 07/26/18 05:59 05:59 05:59 Intake Total 2600 2568 Balance 2600 2568 - Physical Exam Constitutional: chronically ill appearing Eyes: anicteric sclera Cardiovascular: regular rate and rhythym, no murmur, rub, or gallop Respiratory: no respiratory distress, clear to auscultation Gastrointestinal: normoactive bowel sounds, soft, non-tender abdomen, no palpable masses Skin: warm Neurologic: No AAOx3 Psychiatric: encephalopathic ICD10 Worksheet Patient Problems: Problems Problem Status Onset Delirium Acute Dementia Acute Benign prostatic hyperplasia (BPH) with urinary urgency Acute
[2018-07-25] MEDS: D5W 1/2 NS W/ 20 KCl/L 1,000 ML IV SCH (11:37)
[2018-07-25] MEDS ORDERED: HALOPERIDOL LACT 5 MG/ML INJ IM PRN (16:15)
[2018-07-25 16:48] LABS: PLATELET COUNT 181 10^3/uL (150-400)
[2018-07-25] MEDS ORDERED: OLANZapine DISINTEGR 5 MG TAB PO ONE (16:54)
[2018-07-25] MEDS: VANCOMYCIN 1.25 GM in NS 250 ML IV SCH (17:52)
[2018-07-25] MEDS: OLANZapine DISINTEGR 5 MG TAB PO SCH (20:12)
[2018-07-26] MEDS: HALOPERIDOL LACT 5 MG/ML INJ IVP PRN ×3 (00:11→21:08)
[2018-07-26] MEDS: VANCOMYCIN 1.25 GM in NS 250 ML IV SCH ×2 (05:04→17:36)
[2018-07-26] MEDS: ERTAPENEM 1 GM in NS 100 ML IV SCH (08:32)
[2018-07-26] MEDS: D5W 1/2 NS W/ 20 KCl/L 1,000 ML IV SCH (13:25)
[2018-07-26] MEDS: MEMANTINE HCL 5 MG TAB PO SCH ×2 (13:29→20:45)
--- NOTE | 2018-07-26 13:36 | HOSPPROG ---
Hospitalist Progress Note Assessment/Plan: 73 year old male with pmh of dementia, admitted with worsening hallucinations and psychosis. First encounter, chart reviewed. *sepsis- patient spiked a fever to 102 on 07/22 and was tachycardic -concern for aspiration -reviewed his chest x ray which shows peribronchial thickening -ua and blood cx negative -Zosyn changed to Invanz yesterday in case he is having drug fevers * Agitation - high in the differential. -very sedated when given 5 mg of Zyprexa -avoid all benzodiazepines w his dementia -Haldol helped a bit his morning -will try a small dose of Seroquel to see if this helps *Dementia - Alzheimer's type, possibly Lewy body dementia -if he improves is to go to [place] *BPH - S/p TURP Ppx - stop lovenox d/t severe agitiation Dispo - Continue inpatient status for sepsis, agitation, acute psychosis *plan: will ask ST to see, has been NPO, in the meantime will put him on a dysphagia diet. When asked if he wants ice-cream; says yes. He was evaluated by neurology and psychiatry during his stay. Was evaluated by [facility] hospice, along w our palliative care team on 07/23. The family wanted to hear from neurology prior to making decisions which has been done. Palliative indicated that the family is open to hospice if he doesn't return to baseline (which I am unclear of what this is) Subjective: Cain is agitated and is difficult to get much information from him. Objective: Vital Signs Temp Pulse Resp BP Pulse Ox 37.8 C 59 L 18 132/58 H 91 L 07/26/18 12:00 07/26/18 12:00 07/26/18 12:00 07/26/18 12:00 07/26/18 12:00 Laboratory Results 07/25/18 16:35 07/25/18 16:35 07/25/18 07/26/18 07/27/18 05:59 05:59 05:59 Intake Total 2568 1020 Balance 2568 1020 - Physical Exam Constitutional: chronically ill appearing, uncomfortable (looks) Ears, Nose, Mouth, Throat: hearing normal Cardiovascular: regular rate and rhythym Respiratory: no respiratory distress Skin: warm Musculoskeletal: other (moves extremities spontaneously) Neurologic: other (alert) Psychiatric: encephalopathic, agitated ICD10 Worksheet Patient Problems: Problems Problem Status Onset Delirium Acute Dementia Acute Benign prostatic hyperplasia (BPH) with urinary urgency Acute
[2018-07-26] MEDS ORDERED: QUEtiapine FUMARATE 25 MG TAB PO ONE (14:09)
[2018-07-26] MEDS ORDERED: QUEtiapine FUMARATE 25 MG TAB PO PRN (17:35)
[2018-07-26] MEDS: DONEPEZIL HCL 5 MG TAB PO SCH (20:45)
[2018-07-26] MEDS: OLANZapine DISINTEGR 5 MG TAB PO SCH (20:45)
[2018-07-27] MEDS: D5W 1/2 NS W/ 20 KCl/L 1,000 ML IV SCH (04:07)
[2018-07-27] MEDS: VANCOMYCIN 1.25 GM in NS 250 ML IV SCH ×2 (05:06→17:48)
[2018-07-27] MEDS: ERTAPENEM 1 GM in NS 100 ML IV SCH (09:29)
[2018-07-27] MEDS: MEMANTINE HCL 5 MG TAB PO SCH ×2 (09:30→22:01)
--- NOTE | 2018-07-27 11:24 | ASMTCMCOM ---
CM Note CM Note Notes: CM spoke to Leandra with palliative care in regards to this pt. Family would like to continue to treat before discussing change in goals of care. [facility] has been ordered to determine if pt will aspirate food. CM to follow. Plan: TBD Date Signed: 07/27/2018 11:24 AM Electronically Signed By:LIAS Chi
[2018-07-27 14:27] LABS: PLATELET COUNT 241 10^3/uL (150-400)
--- NOTE | 2018-07-27 15:37 | HOSPPROG ---
Hospitalist Progress Note Assessment/Plan: 73 year old male with pmh of dementia, admitted with worsening hallucinations and psychosis. sepsis-no longer meeting criteria. presumed to be due to aspiration PNA. was on zosyn but then patient spiked fever and this was changed to ertepenem for cocnern of drug fever. Doing well on ertepenem. Monitor cultures -cont invanz -aspiration precautions Hypernatremia- may need to start D5W if patient not taking enough oral. Will discuss with nursing. Agitation - sundowning high in the differential. UA clean and labs are all essentially unremarkable. He was given zyprexa in the night and is now lethargic. Uncertain what his baseline is. palliative care -PRN zyprexa -frequent reorientation Dementia - Alzheimer's type; he is supposed to be admitted to [place] later this week for increased level of care. - Continue medications pending reconciliation -discussed case with patients nephew MDPOA who confirmed patients worsening dementia and psychosis over the last 6 weeks. BPH - S/p TURP Diet - Regular Code - Full Ppx - LMWH Dispo - inpatient for likely aspiration pna, agitation, dementia, hopeful for discharge to [facility] in next few days. Objective: Vital Signs Temp Pulse Resp BP Pulse Ox 37.8 C 70 18 161/73 H 90 L 07/27/18 12:00 07/27/18 12:00 07/27/18 12:00 07/27/18 12:00 07/27/18 12:00 Laboratory Results 07/27/18 14:15 07/27/18 14:15 07/26/18 07/27/18 07/28/18 05:59 05:59 05:59 Intake Total 1020 2017 Balance 1020 2017 ICD10 Worksheet Patient Problems: Problems Problem Status Onset Delirium Acute Dementia Acute Benign prostatic hyperplasia (BPH) with urinary urgency Acute
[2018-07-27] MEDS: OLANZapine DISINTEGR 5 MG TAB PO SCH (22:01)
[2018-07-27] MEDS: DONEPEZIL HCL 5 MG TAB PO SCH (22:01)
[2018-07-28] MEDS: HALOPERIDOL LACT 5 MG/ML INJ IVP PRN ×2 (01:56→17:28)
[2018-07-28] MEDS: D5W 1/2 NS W/ 20 KCl/L 1,000 ML IV SCH (02:10)
[2018-07-28] MEDS: VANCOMYCIN 1.25 GM in NS 250 ML IV SCH (05:09)
[2018-07-28] MEDS: ERTAPENEM 1 GM in NS 100 ML IV SCH (09:06)
[2018-07-28] MEDS: MEMANTINE HCL 5 MG TAB PO SCH ×2 (09:06→22:42)
[2018-07-28] MEDS: D5W 1,000 ML IV SCH (11:12)
[2018-07-28 11:29] LABS: PLATELET COUNT 249 10^3/uL (150-400)
--- NOTE | 2018-07-28 13:18 | HOSPPROG ---
Hospitalist Progress Note Assessment/Plan: 73 year old male with pmh of dementia, admitted with worsening hallucinations and psychosis, then developed aspiration PNA. family interested in palliative care and possibly hospice, but family would like to see if patient returns to previous baseline before making that decision. sepsis-no longer meeting criteria. presumed to be due to aspiration PNA. was on zosyn but then patient spiked fever and this was changed to ertepenem for cocnern of drug fever. Doing well on ertepenem. Today is day 6 of abx. Will treat for 7 days as there is no empyema or cavitation. Monitor cultures -stop vancomycin -cont invanz -aspiration precautions Hypernatremia-not taking good PO. was on D50.45%. still with hypernatremia. Stop and give D5W. Agitation - sundowning high in the differential. UA clean and labs are all essentially unremarkable. He was given zyprexa in the night and is now lethargic. Uncertain what his baseline is. palliative care -PRN zyprexa -frequent reorientation -PRN seroquel Dementia - Alzheimer's type; he is supposed to be admitted to [place] later this week for increased level of care. - Continue medications pending reconciliation -discussed case with patients nephew MDPOA who confirmed patients worsening dementia and psychosis over the last 6 weeks. BPH - S/p TURP Diet - Regular Code - Full Ppx - LMWH Dispo - [facility]ely dc [facility] in next few days. Will complete 7 day course of abx tomorrow and appears to be at baseline. Subjective: patient calm today. Appears comfortable. Objective: Vital Signs Temp Pulse Resp BP Pulse Ox 37.9 C 63 20 152/91 H 89 L 07/28/18 07:52 07/28/18 07:52 07/28/18 07:52 07/28/18 07:52 07/28/18 07:52 Microbiology 07/22/18 14:54 Blood Culture - Final Blood 07/22/18 15:00 Blood Culture - Final Blood Laboratory Results 07/28/18 11:20 07/28/18 09:00 07/27/18 07/28/18 07/29/18 05:59 05:59 05:59 Intake Total 2016 1100 Output Total 400 Balance 2016 1100 -400 - Physical Exam Constitutional: no apparent distress, appears nourished, not in pain Eyes: PERRL, anicteric sclera Ears, Nose, Mouth, Throat: moist mucous membranes, no oral mucosal ulcers Cardiovascular: regular rate and rhythym, no murmur, rub, or gallop Respiratory: bronchial breath sounds Gastrointestinal: normoactive bowel sounds, soft, non-tender abdomen, no palpable masses Genitourinary: no bladder fullness Skin: warm, normal color, no rashes or abrasions, no fluctuance Musculoskeletal: full muscle strength Neurologic: CN II-XII Intact Psychiatric: encephalopathic, poor judgement, poor memory Lymph, Heme, Immunologic: no cervical LAD, no supraclavicular LAD ICD10 Worksheet Patient Problems: Problems Problem Status Onset Delirium Acute Dementia Acute Benign prostatic hyperplasia (BPH) with urinary urgency Acute
[2018-07-28] MEDS: ENOXAPARIN 40 MG/0.4 ML SYR SC SCH (15:19)
[2018-07-28] MEDS: DONEPEZIL HCL 5 MG TAB PO SCH (22:42)
[2018-07-28] MEDS: OLANZapine DISINTEGR 5 MG TAB PO SCH (22:42)
[2018-07-29] MEDS: D5W 1,000 ML IV SCH (00:44)
[2018-07-29] MEDS: ENOXAPARIN 40 MG/0.4 ML SYR SC SCH (07:58)
[2018-07-29] MEDS: ERTAPENEM 1 GM in NS 100 ML IV SCH (07:58)
[2018-07-29] MEDS: MEMANTINE HCL 5 MG TAB PO SCH (07:59)
--- NOTE | 2018-07-29 10:46 | ASMTLACE ---
LACE Length of stay for Answers: 4-6 days current admission Acuity / Level of Answers: Yes Care: Did the patient have an inpatient admission? Comorbidities - select Answers: Dementia all that apply # of Emergency department Answers: 1-2 visits in the last 6 months Score: 11 Date Signed: 07/29/2018 10:46 AM Electronically Signed By:Lissette Manuel RN
--- NOTE | 2018-07-29 11:04 | ASMTCMCOM ---
CM Note CM Note Notes: Spoke with Suad at , they are ready for pt. He will likely dc today, updates sent. Date Signed: 07/29/2018 11:03 AM Electronically Signed By:Lissette Manuel RN
--- NOTE | 2018-07-29 12:13 | PDIAF ---
- Diagnosis Code Status: Do Not Resuscitate - Medication Management Additional Medication Instructions: monitor serum sodium and if rising restart D5W. use seroquel and zyprexa as needed for agitation. Discharge Medications: electronically signed and located in the Home Medication List. - Orders Services needed: Home Care, Registered Nurse Home Care Face to Face: I certify that this patient was under my care and that I had the required lklc-of-sodg encounter meeting the encounter requirements on the discharge day. My findings support the fact that the patient is homebound as defined in Home Care Face to Face Continued: [facility] Chapter 7 Medicare Benefits Manual 30.1.1 , The condition of the patient is such that there exists a normal inability to leave home and consequently, leaving home would require a considerable and taxing effort. Isolation Type: None Diet Recommendation: no restrictions on diet Diet Texture: Dysphagia 1 - Pureed, [place] Thick Liquids, Meds Whole in Puree Additional Instructions: activity as tolerated. return to the Er with any new fevers, or acute illness. follow sodium and if not taking enough po or sodium climbing restart [id number]. - Labs/Radiology BMP Date: 07/31/18 (follow serum sodium if rising may need to restart or increase free water intake) - Follow Up Care Current Providers and Referrals: Patient,NotPresent [Unknown] - As per Instructions
--- NOTE | 2018-07-29 12:20 | PDIAF ---
- Diagnosis Code Status: Do Not Resuscitate - Medication Management Additional Medication Instructions: monitor serum sodium and if rising restart D5W. use seroquel and zyprexa as needed for agitation. Discharge Medications: electronically signed and located in the Home Medication List. - Orders Services needed: Registered Nurse, Certified Sales Compensation Analyst Isolation Type: None Diet Recommendation: no restrictions on diet Diet Texture: Dysphagia 1 - Pureed, [place] Thick Liquids, Meds Whole in Puree Additional Instructions: activity as tolerated. return to the Er with any new fevers, or acute illness. follow sodium and if not taking enough po or sodium climbing restart [id number]. - Labs/Radiology BMP Date: 07/31/18 (follow serum sodium if rising may need to restart or increase free water intake) - Follow Up Care Current Providers and Referrals: Patient,NotPresent [Unknown] - As per Instructions
--- NOTE | 2018-07-29 13:01 | ASMTDCNOTE ---
Case Management Discharge Discharge Order Complete? Answers: Yes Patient to Obtain Answers: Other Notes: [place] Medications Transportation Arranged Answers: [facility] will Pick (Date 07/29/2018 05:00 PM & Time) Case Management Transport Answers: Yes Form Complete Faxed Final Orders Answers: Yes Agency/Facility Transfer Answers: Yes Report Printed & Faxed to Receiving Agency Family Notified Answers: Yes Discharge Comments Notes: D/w MD, final orders faxed. Suad anglin komal, RN to call report Date Signed: 07/29/2018 01:00 PM Electronically Signed By:Lissette Manuel RN
--- NOTE | 2018-07-29 15:00 | ASMTCMCOM ---
CM Note CM Note Notes: Speech Language Pathologist saw pt and notes that today pt is at high risk for aspiration and recommends he only eat with therapist. CM called [facility] and sent therapy notes to . Date Signed: 07/29/2018 03:00 PM Electronically Signed By:Lissette Manuel RN
--- NOTE | 2018-07-29 15:30 | PDIAF ---
- Diagnosis Code Status: Do Not Resuscitate - Medication Management Additional Medication Instructions: monitor serum sodium and if rising restart D5W. use seroquel and zyprexa as needed for agitation. Discharge Medications: electronically signed and located in the Home Medication List. - Orders Services needed: Registered Nurse, Certified Proofer Prepress Isolation Type: None Diet Recommendation: no restrictions on diet Diet Texture: Dysphagia 1 - Pureed, [place] Thick Liquids, Oral Feeding with Speech Pathologist Only, Non Oral Meds Additional Instructions: activity as tolerated. return to the Er with any new fevers, or acute illness. follow sodium and if not taking enough po or sodium climbing restart [id number]. patient high risk for aspiration. Family does not want patient NPO, would prefer that he continue with soft diet, and work with [facility]ER to improve swallow. - Labs/Radiology BMP Date: 07/31/18 (follow serum sodium if rising may need to restart or increase free water intake) - Follow Up Care Current Providers and Referrals: Patient,NotPresent [Unknown] - As per Instructions
[2018-07-29 16:06] VITALS: BP 153/64
--- NOTE | 2018-07-29 16:39 | PDDCSUM ---
Discharge Summary Discharge Summary: Evans Saenz is a 73 year old male with advanced dementia who was admitted with worsening agitation, and psychosis. He was living with his 93 year old mother who noticed that he had become more confused, hallucinating, and agitated over the last month and was finally unable to manage him at home. In the hospital initially patient was extremely agitated and aggressive, requiring IM zyprexa to manage his behavior. On hospital day three patient had an aspiration event, and spiked a fever. He was started on abx for aspiration PNA. He was seen by neurology who felt that patient had known advanced dementia and his worsening either reprsented worsening of his disease possibly exacerbated by infection. They recommended treating his underlying infection. Psychiatry also saw the patient and recommended small doses of zyprexa and seroquel for agitation. Patient recovered from his infection well. He was evaluated by AUTO ELECTRICIAN and initially was originally made NPO, but then cleared for a dysphagia 1 diet. Over the course of his hospitalization he did calm down to what appeared more like his previous baseline. Palliative care was consulted and met with the family who was not yet ready for hospice care. It was discussed with them that patient will likely be high risk for aspiration and may not be able to take PO without aspiration. They said that they would prefer him to be able to eat and aspirated then to be made NPO and have a feeding tube. On the day of discharg patient was evaluated by speech again who said patient was aspirating with all food consistencies. I discussed his case again wtih the MDPOA, his Nephew. They again stated that they would not be interested in a feeding tube, and thought it wished to discharge the patient to SNF on his previous diet and knew that he could aspirate again. He was discharged to [place] in good condition to work [facility] AUTO ELECTRICIAN.
--- NOTE | 2018-07-29 16:56 | ASDISCHSUM ---
Discharge Information Plan Status:SNF Medically Cleared to Leave: Discharge Date:07/29/2018 04:53 PM D/C Disposition:Care Home Facility ADT D/C Disposition:Care Home Facility Projected Discharge Date:07/24/2018 11:00 AM Transportation at D/C:ALS/BLS Discharge Delay Reason: Follow-Up Date:07/24/2018 11:00 AM Discharge Slot: Final Diagnosis: Placement Information Referral Type:Palliative Care Referral ID:[id number] Provider Name:[facility] Address 1:[address] Phone Number: Address 2: Fax Number: [facility]:[place] Selection Factors: State:[place] Referral Type:*Shelter/SNF Referral ID:[id number] Provider Name:[facility] [place] Address 1:[address] Address 2: City:[place] Selection Factors: State:[place] Patient Contact Information Contact Name:RADAMES Relationship:Mother Address:[address] Work Phone: City:[place] Alternate Phone: State/Zip Code:[place] [address] Email: Financial Information Financial Class:Medicare Primary Plan Desc:MEDICARE INPATIENT Primary Plan Number:[id number] Secondary Plan Desc: Secondary Plan Number: Assessment Information LACE LACE Length of stay for Answers: 4-6 days current admission Acuity / Level of Answers: Yes Care: Did the patient have an inpatient admission? Comorbidities - select Answers: Dementia all that apply # of Emergency department Answers: 1-2 visits in the last 6 months Score: 11 Date Signed: 07/29/2018 10:46 AM Electronically Signed By:Lissette Manuel RN [facility] CM Progress Note CM Note CM Note Notes: 07/21/2018 Case Management Note Pt admitted for agitation r/t dementia. Palliative order noted. Faxed referral to [facility]. [facility] rounded on case and made recommendations to MD. Borjas from [facility] visited patient. Family has paid for terminal block assembler care at [facility]. [facility] able to accept pt once symptoms are stable. PASRR completed by [facility]. Case Management d/c poc: [facility] terminal block assembler care with [facility] Newman to follow. Case Management to follow. Date Signed: 07/21/2018 03:18 PM Electronically Signed By:Fabiola Mccauley RN [facility] CM Progress Note CM Note CM Note Notes: 07/22/2018 [place] Management Note Contact with [facility] and Living Will. Both are in front of chart. Discussion with palliative care team members. Palliative goals of care conference planned for 9 am Thursday morning. Psychiatry and neurology consults ordered. Per Dr. Jorge Alberto Dhillon is pt neurologist as outpatient. Pt was accepted at [facility] prior to admisson at [facility] for terminal block assembler placement. Family has provided a down payment to [facility]. PASSR is completed per Suad at [facility]. Faxed referral to [facility]. Case Management d/c poc: [facility] once medically stable. Case Management to follow. Date Signed: 07/22/2018 04:17 PM Electronically Signed By:Fabiola Mccauley RN [facility] CM Progress Note CM Note CM Note Notes: Pt here with severe dementia and increasing agitation. Pt has been living with his 94 yr old mother who has been his caregiver but can no longer manage. Pt's nephew is cindy, plan is for pt to be admitted to [facility] when medically stable. DC Plan: [facility] Date Signed: 07/24/2018 11:35 AM Electronically Signed By:Lissette Manuel RN [facility] Progress Note CM Note CM Note Notes: CM spoke to Leandra with palliative care in regards to this pt. Family would like to continue to treat before discussing change in goals of care. [facility] has been ordered to determine if pt will aspirate food. CM to follow. Plan: TBD Date Signed: 07/27/2018 11:24 AM Electronically Signed By:LISA Chi [facility] CM Progress Note CM Note CM Note Notes: Spoke with Suad at , they are ready for pt. He will likely dc today, updates sent. Date Signed: 07/29/2018 11:03 AM Electronically Signed By:Lissette Manuel RN Case Management Discharge Plan Note Case Management Discharge Discharge Order Complete? Answers: Yes Patient to Obtain Answers: Other Notes: [facility] Medications Transportation Arranged Answers: [facility] will Pick (Date 07/29/2018 05:00 PM & Time) Case Management Transport Answers: Yes Form Complete Faxed Final Orders Answers: Yes Agency/Facility Transfer Answers: Yes Report Printed & Faxed to Receiving Agency Family Notified Answers: Yes Discharge Comments Notes: D/w , final orders faxed. Suad at notified, RENAN to call report Date Signed: 07/29/2018 01:00 PM Electronically Signed By:Lissette Manuel RN [facility] Progress Note CM Note CM Note Notes: Speech Language Pathologist saw pt and notes that today pt is at high risk for aspiration and recommends he only eat with therapist. CM called Suad and sent therapy notes to . Date Signed: 07/29/2018 03:00 PM Electronically Signed By:Lissette Manuel RN Intervention Information Intervention Type:IM-Pt. Not Available Date of Service:07/29/2018 02:25 PM Patient Type:Inpatient Staff Member:Rachel James Hours: Discipline: Severity: Comment:Unable to discuss Medicare form with p atient due to patients dementia and psychosis.
== END 2018-07-29 16:53 | DRG 56 ==
LOC: EDUNIT# → F2W 05:35 → OBSVTOIN 11:58 → F3E 07-23 23:40
PROVIDERS: ADMIT Student in an Organized Health Care Education/Training Program; ATTEND Internal Medicine
DX: G30.9 Alzheimer's disease, unspecified (principal); F02.81 Dementia in other diseases classified elsewhere, unspecified severity, with behavioral disturbance; A41.9 Sepsis, unspecified organism; J69.0 Pneumonitis due to inhalation of food and vomit; F05 Delirium due to known physiological condition; R44.1 Visual hallucinations; E87.0 Hyperosmolality and hypernatremia; Z66 Do not resuscitate
CPT/HCPCS: 92526-GN; 92610-GN; 96374; 97166-GO; G8987-GO-CN; G8988-GO-CN; G8989-GO-CN; J1335; J1630; J1650; J2060; J2543; J3370